=== PATIENT | female | born 1965 | race Caucasian/White ===

== ENCOUNTER 2017-06-10 15:03 | Inpatient (IN) ==
[2017-06-10 17:38] LABS: Basophils % 0.3 %; Eosinophils # 0.2 K/mcL (0.0-0.6); Eosinophils % 2.3 %; Hematocrit 41.7 % (35.3-44.9); Hemoglobin 13.9 g/dL (11.5-15.4); Immature Granulocytes % 0.4 % (0-4); Lymphocytes # 1.6 K/mcL (0.6-4.6); Lymphocytes % 18.1 %; Mean Corpuscular HGB Conc 33.3 g/dL (31.6-35.5); Mean Platelet Volume 10.9 fL (9.4-12.4); Monocytes # 0.8 K/mcL (0.0-1.3); Monocytes % 8.5 %; Neutrophils # 6.4 K/mcL (1.6-8.9); Platelet Count 233 K/mcL (140-400); Red Blood Count 4.21 M/mcL (3.82-4.97); Red Cell Distribution Width 15.3 % (11.5-14.5); Segmented Neutrophils % 70.4 %
[2017-06-10 17:49] LABS: BUN/Creatinine Ratio 10 (6-26); Blood Urea Nitrogen 9 mg/dL (7-20); Calcium 9.9 mg/dL (8.6-10.8); Carbon Dioxide 28 mEq/L (19-29); Chloride 108 mEq/L (98-109); Glucose 93 mg/dL (70-99); Osmolality,Calculated 296 (280-300); Potassium 4.1 mEq/L (3.5-4.5); Sodium 144 mEq/L (136-145); eGFR For African Americans > 60 (> 60); eGFR For Non-African Americans > 60 (> 60)
[2017-06-10] MEDS ORDERED: Aspirin 81 MG TAB.CHEW PO STA (18:34)
--- NOTE | 2017-06-10 18:36 | Emergency Department Note ---
START Narrative - START START: Patient seen and examined the time of arrival. 51-year-old female describing onset of numbness and tingling in the left upper extremity on the left side of her mouth and face that started approximately 1 PM this afternoon. During that timeframe there has been no significant progression of the symptoms. In arrival here she has had complete resolution of the symptoms at this time. No history of stroke. Denies any chest pain shortness breath headache vision changes nausea vomiting or diarrhea. Denies any recent trauma or injury. She does have what she describes as neuropathy to the distal aspect of the left index finger. She has no other neuro symptoms on exam. Face is symmetric bilaterally oral mucosa is patent and moist. Trachea is midline lungs are clear heart is regular abdomen soft nontender nondistended. No signs of swelling or edema in the lower extremities. Patient will have screening evaluation completed including CT imaging of the head chest x-ray EKG urinalysis CBC chemistry and electrolyte panel. Patient will have disposition determined by the nighttime physician Dr. dash pond. We will review the presentation symptoms of medical history at this time and course of care will be completed by him. Aspirin a be given here in the emergency room.
[2017-06-10 19:19] LABS: Magnesium 2.1 mg/dL (1.6-2.6)
[2017-06-10 19:20] LABS: Bilirubin,Urine Negative (Negative); Blood,Urine Negative (Negative); Clarity,Urine Clear (Clear); Color,Urine Yellow (Yellow); Glucose,Urine (UA) Normal (Normal); Ketones,Urine Negative (Negative); Leukocyte Esterase,Urine Negative (Negative); Nitrite,Urine Negative (Negative); Protein,Urine Negative (Neg-Trace); Specific Gravity,Urine 1.016 (1.010-1.025); Urobilinogen,Urine Normal (Normal)
[2017-06-10] MEDS ORDERED: Dexamethasone 4 MG/ML VIAL IVP ONE (19:30)
--- NOTE | 2017-06-10 19:41 | Emergency Department Note ---
Disposition Clinical Impression: Brain mass TIA (transient ischemic attack) Qualifiers: Transient cerebral ischemia type: unspecified Qualified Code(s): G45.9 - Transient cerebral ischemic attack, unspecified Disposition: Admitted As Inpatient Condition: Good Referrals: Kelby Shabazz MD [Primary Care Provider] - Time of Disposition: 19:59 Neuro HPI - General Chief Complaint: ED Neuro Symptoms/Deficit Stated Complaint: L Facial / Arm Numbness Time Seen by Provider: 06/10/17 18:24 Source: patient Mode of arrival: ambulatory Limitations: no limitations Nursing Notes Reviewed: Yes Vital Signs Reviewed: Yes - History of Present Illness HPI Narrative: Patient resents emergency room with complaint of left-sided facial numbness left arm tingling. Patient denies any trauma or injury. She is currently finished with a six-month regiment of chemotherapy. She is known breast cancer that has been treated. Patient denies chest pain shortness of breath headache vision changes nausea vomiting or diarrhea. Denies headache or vision changes time. Patient's symptoms are completely resolved on arrival here to the emergency room. Patient was concerned and wanted evaluated today. Onset of Symptoms Date: 06/10/17 Symptom Onset Unknown: No Location: left face, left arm History of same: No Severity: mild Quality: numbness, tingling Symptoms Improving: Yes Improves with: time Worsens with: none Context: sudden onset On Anticoagulants: No Treatments Prior to Arrival: none - Related Data Home Medications: Home Medications Medication Instructions Recorded Confirmed Cetirizine HCl [Zyrtec] 1 tab PO DAILY 10/13/15 05/31/17 Glucosamine Sulfate Dipot Chlr 1 tab PO BID 10/13/15 05/31/17 [Glucosamine] Multivitamin [Multivitamins] 1 cap PO DAILY 10/13/15 05/31/17 Calcium Carbonate [Calcium] 600 mg PO DAILY 01/17/16 05/31/17 Sulfacetamide Sodium 10% OPTH 1 drop BOTH EYES QID PRN 01/10/17 05/31/17 [Bleph 10] Previous Rx's Medication Instructions Recorded LORazepam [Ativan] 0.5 mg PO Q6H PRN #30 tablet 11/05/16 Loperamide [Imodium] 2 mg PO AD PRN #90 capsule 11/05/16 Magic Mouthwash 10 ml PO TID PRN #260 ml 03/06/17 Omeprazole [PriLOSEC] 20 mg PO DAILY #90 capsule. 11/05/16 Ondansetron [Zofran] 8 mg PO Q8HR PRN #30 tablet 11/05/16 Prochlorperazine Maleate 10 mg PO Q6HR PRN #40 tablet 11/05/16 [Compazine] Diphenoxylate/Atropine [Lomotil 2 each PO AD PRN #90 tablet 12/03/16 2.5 mg/0.025 mg] Tobramycin/Dex Opth DROPS 1 drop RIGHT EYE QID PRN #1 bottle 01/10/17 [Tobradex Opth Drops] Hydrocortisone 1% CREAM [Cortaid] 28 appl TP PRN PRN #1 bottle 04/01/17 Gabapentin [Neurontin] 300 mg PO HS #30 capsule 05/20/17 Letrozole [Femara] 2.5 mg PO DAILY #90 tablet 05/31/17 Allergies/Adverse Reactions: Allergies Allergy/AdvReac Type Severity Reaction Status Date / Time Penicillins Allergy Anaphylaxis Verified 05/31/17 11:45 adhesive tape AdvReac Itching Verified 05/31/17 11:45 All systems ED: reviewed and negative except as stated. Review of Systems: As Per HPI Constitutional: Denies: fever, chills, weakness Eyes: Denies: eye pain, eye discharge Cardiovascular: Denies: chest pain, palpitations, dyspnea on exertion Gastrointestinal: Denies: abdominal pain, nausea, vomiting, diarrhea Genitourinary: Denies: urgency, dysuria Musculoskeletal: Denies: back pain, neck pain Neurological: Denies: headache Past Medical History - Past Medical History Attestation: Yes The following information was validated with the patient. Source: patient Medical history: Reports: cancer Surgical history: Reports: breast surgery, hysterectomy, other Psychiatric history: Reports: no psych history - Social History Smoking Status: Former smoker Smokeless Tobacco Status: No Alcohol use: Reports: occasionally Drug use: Reports: none Physical Exam - General Limitations: no limitations General appearance: alert, in no apparent distress - Head Head exam: atraumatic, normocephalic, normal inspection - ENT ENT exam: normal exam, normal oropharynx, mucous membranes moist - Neck Neck exam: Present: normal inspection, full ROM, trachea midline - Chest Chest inspection: Present: normal inspection, symmetric chest wall rise. Absent : tenderness - Respiratory Respiratory exam: Present: normal lung sounds bilaterally. Absent: respiratory distress - Cardiovascular Cardiovascular exam: Present: regular rate, normal rhythm, normal heart sounds - Extremities Exam Extremities exam: Present: normal inspection, full ROM, normal capillary refill. Absent: tenderness - Back Exam Back exam: Present: normal inspection, full ROM. Absent: tenderness - Neurological Exam Neurological exam: Present: alert, oriented X3, CN II-XII intact, normal gait - Skin Skin exam: Present: warm, dry, intact, normal color Course Course Narrative: Patient was initially seen by myself in the start. Patient had results called and while still here in the emergency room and there is concerning findings on CT scan of her head. Initial presentation was completely benign. Patient waited in the emergency room lobby for approximately 3 hours prior to being brought back to the bed. Even prior to coming into our emergency room showed complete resolution of her symptoms. Patient described left-sided facial numbness and tingling as well as left upper extremity numbness and tingling. My neurologic evaluation is completely benign at this time patient has no focal issues noted on evaluation. CT imaging of the head as well as laboratory workup were ordered at this time for TIA evaluation and concern for possible mass effect secondary to the patient's history of breast cancer. CT imaging was resulted to myself by the on-call radiologist and there is a large 3 cm mass in the right parietal frontal hemisphere of the brain with swelling and edema. Mild mass effect is noted less than 3 mm. Consultation placed to the on -call radiologist and oncologist. Dr. Fuller and I reviewed the CT imaging results in presentation. He recommended steroids to be started at this time. Offered possible discharge home with MRI outpatient evaluation and consultations. After discussion with the patient and family at the bedside as well as the presentation symptoms and the concern based on the imaging study the decision was made to admit the patient for steroid presentation evaluation as well as MRI imaging and inpatient consultations. Consultation will be placed to oncology at this point and admission process completed. The on-call hospitalist Dr. Maki and I reviewed the imaging and the treatment recommendations. pt will be admitted at this time. Vital Signs Temperature 98.2 F 06/10/17 15:06 Pulse Rate 103 06/10/17 15:06 Respiratory Rate 16 06/10/17 15:06 Blood Pressure 173/89 06/10/17 15:06 O2 Sat by Pulse Oximetry 94 06/10/17 15:06 Temperature 98.2 F 06/10/17 15:06 Pulse Rate 82 06/10/17 18:36 Respiratory Rate 14 06/10/17 18:36 Blood Pressure 162/76 06/10/17 18:36 O2 Sat by Pulse Oximetry 99 06/10/17 18:36 Oxygen Delivery Oxygen Delivery Room Air Neuro Symptoms/Deficit - MDM Narrative Medical decision making narrative: brain mass, edema. tia symptoms - Medical Records Medical records reviewed: Yes I reviewed the patient's medical records. - Lab Data Lab results reviewed: Yes I reviewed the patient's lab results. Result diagrams: 06/10/17 17:22 06/10/17 17:22 Lab Results 06/10/17 06/10/17 06/10/17 Range/Units 17:22 17:22 17:22 WBC 9.1 (4.3-11.1) K/mcL RBC 4.21 (3.82-4.97) M/mcL Hgb 13.9 (11.5-15.4) g/dL Hct 41.7 (35.3-44.9) % MCV 99.0 (83.0-100.0) fL MCH 33.0 (28.0-33.3) pg MCHC 33.3 (31.6-35.5) g/dL RDW 15.3 H (11.5-14.5) % Plt Count 233 (140-400) K/mcL MPV 10.9 (9.4-12.4) fL Immature Gran % 0.4 (0-4) % Seg Neutrophils % 70.4 % Lymphocytes % 18.1 % Monocytes % 8.5 % Eosinophils % 2.3 % Basophils % 0.3 % Neutrophils # 6.4 (1.6-8.9) K/mcL Lymphocytes # 1.6 (0.6-4.6) K/mcL Monocytes # 0.8 (0.0-1.3) K/mcL Eosinophils # 0.2 (0.0-0.6) K/mcL Basophils # 0.0 (0.0-0.2) K/mcL Sodium 144 (136-145) mEq/L Potassium 4.1 (3.5-4.5) mEq/L Chloride 108 (98-109) mEq/L Carbon Dioxide 28 (19-29) mEq/L BUN 9 (7-20) mg/dL Creatinine 0.87 (0.57-1.11) mg/dL Est GFR ( Amer) > 60 (> 60) Est GFR (Non-Af Amer) > 60 (> 60) BUN/Creatinine Ratio 10 (6-26) Glucose 93 (70-99) mg/dL Calculated Osmolality 296 (280-300) Calcium 9.9 (8.6-10.8) mg/dL Phosphorus 3.0 (2.3-4.7) mg/dL Magnesium 2.1 (1.6-2.6) mg/dL Troponin I 0.00 (0-0.03) ng/mL Urine Color (Yellow) Urine Clarity (Clear) Urine pH (5.0-8.0) pH Units Ur Specific [place] (1.010-1.025) Urine Protein (Neg-Trace) mg/dL Urine Glucose (UA) (Normal) mg/dL Urine Ketones (Negative) mg/dL Urine Blood (Negative) Urine Nitrite (Negative) Urine Bilirubin (Negative) Urine Urobilinogen (Normal) mg/dL Ur Leukocyte Esterase (Negative) Ur Culture Indicated? (NO) Urine Test (Negative) 06/10/17 06/10/17 Range/Units 19:03 19:03 WBC (4.3-11.1) K/mcL RBC (3.82-4.97) M/mcL Hgb (11.5-15.4) g/dL Hct (35.3-44.9) % MCV (83.0-100.0) fL MCH (28.0-33.3) pg MCHC (31.6-35.5) g/dL RDW (11.5-14.5) % Plt Count (140-400) K/mcL MPV (9.4-12.4) fL Immature Gran % (0-4) % Seg Neutrophils % % Lymphocytes % % Monocytes % % Eosinophils % % Basophils % % Neutrophils # (1.6-8.9) K/mcL Lymphocytes # (0.6-4.6) K/mcL Monocytes # (0.0-1.3) K/mcL Eosinophils # (0.0-0.6) K/mcL Basophils # (0.0-0.2) K/mcL Sodium (136-145) mEq/L Potassium (3.5-4.5) mEq/L Chloride (98-109) mEq/L Carbon Dioxide (19-29) mEq/L BUN (7-20) mg/dL Creatinine (0.57-1.11) mg/dL Est GFR ( Amer) (> 60) Est GFR (Non-Af Amer) (> 60) BUN/Creatinine Ratio (6-26) Glucose (70-99) mg/dL Calculated Osmolality (280-300) Calcium (8.6-10.8) mg/dL Phosphorus (2.3-4.7) mg/dL Magnesium (1.6-2.6) mg/dL Troponin I (0-0.03) ng/mL Urine Color Yellow (Yellow) Urine Clarity Clear (Clear) Urine pH 7.0 (5.0-8.0) pH Units Ur Specific [place] 1.016 (1.010-1.025) Urine Protein Negative (Neg-Trace) mg/dL Urine Glucose (UA) Normal (Normal) mg/dL Urine Ketones Negative (Negative) mg/dL Urine Blood Negative (Negative) Urine Nitrite Negative (Negative) Urine Bilirubin Negative (Negative) Urine Urobilinogen Normal (Normal) mg/dL Ur Leukocyte Esterase Negative (Negative) Ur Culture Indicated? NO (NO) Urine Test Negative (Negative) - Radiology Data Radiology results reviewed: Yes I reviewed the patient's radiology results. ct confirms right-sided brain mass with edema. No significant midline shift noted. - EKG Data EKG attestation: Yes I reviewed and interpreted this EKG. EKG results narrative: EKG shows normal sinus rhythm ventricular rate of 80 bpm. SC interval 137. QRS duration of 89. QTC of 394. No acute signs of ST segment elevation or myocardial infarction EKG shows normal: sinus rhythm, axis, intervals, QRS complexes, ST-T waves Rate: normal Rhythm: NSR [place]/QRS: normal NIH Stroke Scale - Level of Consciousness LOC: Alert - LOC Questions LOC Questions: Answers both correctly - LOC Commands LOC Commands: Performs both correctly - Best Gaze Best Gaze: Normal - Visual Visual: No visual loss - Facial Palsy Facial Palsy: Normal - Motor Arms Motor Arm-Left: No drift for 10 seconds Motor Arm-Right: No drift for 10 seconds - Motor Legs Motor Leg-Left: No drift for 5 seconds Motor Leg-Right: No drift for 5 seconds - Limb Ataxia Limb Ataxia: Normal, No Ataxia - Sensory Sensory: Normal - Best Language Best Language: Mute, no usable speech - Dysarthria Dysarthria: Normal - Extinction and Inattention Extinction and Inattention: Normal - NIHSS Total Score NIHSS Total Score: 3 TPA Checklist - LKW: 3-4.5 hrs Add. Warnings/Precautions Patient/family understanding: The patient/family members have been counseled and understood the risk, benefit , and alternatives of treatment. Critical Care Time Critical Care Time: Yes Total Critical Care Time: 30 Attestation: Critical care performed: Time is exclusive of separately billable procedures. Time includes: direct patient care, patient reassessment, coordination of patient care, interpretation of data (laboratory data, radiology data, and respiratory data), review of patient's medical records, medical consultation and documentation of patient care. Procedures included in critical care time: Procedures excluded from critical care time:
[2017-06-10] MEDS ORDERED: *HR* LORazepam 2 MG/ML VIAL IVP ONE (19:52)
[2017-06-11] MEDS ORDERED: *HR* OxyCODONE Immed Rel 5 MG TABLET PO PRN (02:08)
[2017-06-11] MEDS ORDERED: Ondansetron 4 MG/2 ML VIAL IVP PRN (02:08)
[2017-06-11] MEDS ORDERED: Acetaminophen 325 MG TABLET PO PRN (02:08)
[2017-06-11] MEDS ORDERED: *HR* Morphine 2 MG/ML SYRINGE IVP PRN (02:08)
[2017-06-11] MEDS ORDERED: Naloxone 0.4 MG/ML INJ IVP PRN (02:08)
[2017-06-11] MEDS ORDERED: *HR* LORazepam 0.5 MG TABLET PO PRN (02:18)
[2017-06-11] MEDS ORDERED: Magic Mouthwash 10 ML UD Cup PO PRN (02:18)
[2017-06-11] MEDS ORDERED: Sulfacetamide Sodium 10% OPTH 15 ML BOTTLE BOTH EYES PRN (02:18)
[2017-06-11] MEDS ORDERED: Tobramycin/Dex Opth DROPS 2.5 ML BOTTLE RIGHT EYE PRN (02:18)
--- NOTE | 2017-06-11 02:29 | Internal Med History&Physical ---
Date of Encounter: 06/11/17 Time of Encounter: 01:50 Assessment and Plan (1) Brain mass Current visit: Yes Status: Acute 1. CT head report reviewed and images viewed. 2. Will place on IV Decadron 4 mg Q6H scheduled. 3. Will order brain MRI to be done STAT first thing in the morning. 4. Consult Oncology and Neurology for guidance. 5. Neurochecks to be performed Q4 hours. 6. Patient will likely need radiation therapy soon vs gamma knife surgery. Discussed with patient and will await oncology recommendations. 7. Possible transfer to [facility] for neurosurgical consultation pending MRI and Oncology/Neurology consultation. (2) Breast cancer Current visit: Yes Status: Chronic 1. Continue home meds as appropriate. 2. Consult oncology for guidance, treatment options, and possible transfer (if necessary) regarding brain metastases treatment. Qualifiers: Breast location: unspecified site of breast Estrogen receptor status: unspecified Patient sex: female Laterality: left Qualified Code(s): C50.912 - Malignant neoplasm of unspecified site of left female breast (3) DVT prophylaxis Current visit: Yes Status: Acute 1. EPCD's. Internal Medicine - H&P: HPI Chief complaint: left hand numbness Admitted From: Emergency Dept Plans for Post Hospital Care: Home History of present illness: Ms. Miner is a 51 year old female who presents to the ER tonight with complaints of left-sided numbness of her hand and arm. Symptoms started early yesterday but they resolved by the evening. She has had a headache for most of week but the headache resolved yesterday. She has had no other associated numbness, weakness, or paralysis. She went to the ER for evaluation where she underwent CT of the head. The found a 3 cm frontoparietal mass on the right side with some vasogenic edema. This is likely secondary to metastatic lesion from her breast cancer. Oncology was consulted by the ER and recommended placing patient on steroids. The patient was then admitted to hospitalist service. Upon my assessment of the patient, she is resting comfortably with no complaints presently. She states all of her symptoms have resolved, and she has no further numbness, paresthesias, weakness, or any further headache. She denies any paralysis. She denies any speech difficulty or choking with food ingestion. I reviewed the CT scan of her head and discussed with patient the findings noted above. I informed her that this is likely a metastatic lesion from her breast cancer but that we need to confirm with MRI of the brain in the morning. I explained that I would place her on IV steroids tonight and that we are going to consult neurology and oncology for further guidance. Patient voiced understanding and agreement with the plan of care. She obviously was emotionally distraught and teary-eyed as I talked to her. Past Med Surg Social Fam HX - Past Medical History Attestation: Yes The following information was validated with the patient. Source: patient, old records reviewed Medical history: cancer (breast) Psychiatric history: no psych history - Past Surgical History Surgical History: breast surgery, hysterectomy, other - Social History Smoking Status: Former smoker Smokeless Tobacco Status: No Alcohol use: occasionally Drug use: none Current living situation: Home, With Family Activity Level: Independent ambulation Recent Out of Country Travel Within the Last 8 Weeks: No - Family History Mother Name: kwame blue Living Status: Age at : 43 Cause of : cervical cancer Hx Family Cancer: Yes Internal Medicine - H&P: Meds Cetirizine HCl [Zyrtec] 10 mg PO DAILY 10/13/15 [History] Glucosamine Sulfate Dipot Chlr [Glucosamine] 1,000 mg PO BID 10/13/15 [History] Multivitamin [Multivitamins] 1 cap PO DAILY 10/13/15 [History] Calcium Carbonate [Calcium] 600 mg PO DAILY 01/17/16 [History] LORazepam [Ativan] 0.5 mg PO Q6H PRN #30 tablet 11/05/16 [Rx] Loperamide [Imodium] 2 mg PO AD PRN #90 capsule 11/05/16 [Rx] Magic Mouthwash 10 ml PO TID PRN #260 ml 11/05/16 [Rx] Omeprazole [PriLOSEC] 20 mg PO DAILY #90 capsule. 11/05/16 [Rx] Ondansetron [Zofran] 8 mg PO Q8HR PRN #30 tablet 11/05/16 [Rx] Prochlorperazine Maleate [Compazine] 10 mg PO Q6HR PRN #40 tablet 11/05/16 [Rx] Diphenoxylate/Atropine [Lomotil 2.5 mg/0.025 mg] 2 each PO AD PRN #90 tablet 11/16 [Rx] Sulfacetamide Sodium 10% OPTH [Bleph 10] 1 drop BOTH EYES QID PRN 01/10/17 [ History] Tobramycin/Dex Opth DROPS [Tobradex Opth Drops] 1 drop RIGHT EYE QID PRN #1 bottle 01/10/17 [Rx] Gabapentin [Neurontin] 300 mg PO HS #30 capsule 05/20/17 [Rx] Letrozole [Femara] 2.5 mg PO DAILY #90 tablet 05/31/17 [Rx] 3 Allergy/AdvReac Type Severity Reaction Status Date / Time Penicillins Allergy Anaphylaxis Verified 05/31/17 11:45 adhesive tape AdvReac Itching Verified 05/31/17 11:45 - Constitutional Constitutional: no chills, no fever(s) - EENT Eyes: no blurry vision, no change in vision Ears: no ear pain Nose, mouth and throat: no nasal congestion, no sinus pain, no sinus pressure - Cardiovascular Cardiovascular ROS IM: no chest pain, no dyspnea, no lightheadedness, no palpitations - Respiratory Respiratory: no cough, no dyspnea, no hemoptysis - Gastrointestinal Gastrointestinal: no abdominal pain, no diarrhea, no hematemesis, no hematochezia, no nausea, no vomiting - Genitourinary Genitourinary: no dysuria, no flank pain, no hematuria - Musculoskeletal Musculoskeletal ROS IM: no arthralgias, no back pain - Integumentary Integumentary IM: no rash, no jaundice - Neurological Neurological ROS: focal weakness (left upper extremity), headache(s), paresthesias (left upper extremity), no frequent falls - Psychiatric Psychiatric: no anxiety, no depression - Endocrine Endocrine IM: no polydipsia, no polyuria - Hematologic/Lymphatic Hematologic/Lymphatic: no easy bruising - Allergic/Immunologic Allergic/Immunologic: no wheezing, no GI upset with certain foods - Constitutional Vitals: Temp Pulse Resp BP Pulse Ox 97.8 F 82 16 135/70 94 06/11/17 00:05 06/11/17 00:05 06/11/17 00:05 06/11/17 00:05 06/11/17 00:05 General appearance: Present: cooperative, A&O X 3, pleasant, no acute distress - Head Head exam: Present: atraumatic, normal inspection - Expanded Head Exam Head exam expanded: Absent: abrasion, contusion, general tenderness - Eye Eye exam: Present: EOMI, normal appearance, PERRL. Absent: scleral icterus Pupils: Present: normal accommodation - ENT ENT exam: Present: mucous membranes moist, normal exam - Neck Neck exam general surgery: Present: full ROM, supple. Absent: tenderness, thyromegaly - Expanded Neck Exam Neck exam: Absent: carotid bruit - Respiratory Respiratory exam: Present: CTAB. Absent: rales, rhonchi, wheezes - Cardiovascular Cardiovascular exam: Present: RRR, +S1, +S2. Absent: diastolic murmur, systolic murmur - GI/Abdominal GI/Abdominal exam: Present: normal bowel sounds, soft. Absent: hepatomegaly, mass, splenomegaly, tenderness - Extremities Exam Extremities exam: Present: full ROM, warm, radial pulses palpable and symmetrical. Absent: calf tenderness, joint swelling, pedal edema - Back Exam Back exam: Absent: CVA tenderness (L), CVA tenderness (R) - Neurological Exam Neurological exam: Present: alert, CN II-XII intact, oriented X3, reflexes normal, no focal deficits, strengths equal and symetr throughout. Absent: motor sensory deficit, facial droop, speech deficit - Psychiatric Psychiatric exam: Present: normal affect, normal mood - Skin Skin exam: Present: dry, warm. Absent: rash Internal Med - H&P Results - Labs CBC & Chem 7: 06/10/17 17:22 06/10/17 17:22 - EKG Data -: EKG Interpreted by Myself - EKG Data Prior EKG available for review: no EKG comments: 06/11/17 02:48 NSR; no acute changes - Diagnostic Studies CT scan - head Status: image reviewed by me (3 cm masss leion noted; report reviewed)
[2017-06-11 03:48] LABS: Basophils % 0.1 %; Eosinophils % 0.1 %; Hematocrit 40.3 % (35.3-44.9); Hemoglobin 13.4 g/dL (11.5-15.4); Immature Granulocytes % 0.4 % (0-4); Lymphocytes # 0.7 K/mcL (0.6-4.6); Lymphocytes % 8.5 %; Mean Corpuscular HGB Conc 33.3 g/dL (31.6-35.5); Mean Corpuscular Hemoglobin 32.7 pg (28.0-33.3); Mean Corpuscular Volume 98.3 fL (83.0-100.0); Mean Platelet Volume 10.9 fL (9.4-12.4); Monocytes # 0.2 K/mcL (0.0-1.3); Monocytes % 2.2 %; Platelet Count 240 K/mcL (140-400); Red Cell Distribution Width 15.1 % (11.5-14.5); Segmented Neutrophils % 88.7 %
[2017-06-11 03:51] LABS: INR 1.1; Prothrombin Time 11.3 Seconds (9.4-12.1)
[2017-06-11 03:54] LABS: Activated Partial Thrombo Time 27.2 Seconds (26.0-36.0)
[2017-06-11 04:01] LABS: Alanine Aminotransferase 23 Units/L (0-55); Albumin 3.7 g/dL (3.5-5.0); Alkaline Phosphatase 52 Units/L (38-126); Aspartate Amino Transferase 20 Units/L (5-34); BUN/Creatinine Ratio 14 (6-26); Bilirubin,Total 0.3 mg/dL (0.2-1.2); Blood Urea Nitrogen 11 mg/dL (7-20); Calcium 9.4 mg/dL (8.6-10.8); Carbon Dioxide 24 mEq/L (19-29); Chloride 110 mEq/L (98-109); Globulin 3.8 g/dL (2.4-3.5); Glucose 198 mg/dL (70-99); Magnesium 1.9 mg/dL (1.6-2.6); Osmolality,Calculated 295 (280-300); Sodium 140 mEq/L (136-145); Total Protein 7.5 g/dL (6.0-8.3); eGFR For African Americans > 60 (> 60); eGFR For Non-African Americans > 60 (> 60)
[2017-06-11] MEDS: Dexamethasone 4 MG/ML VIAL IVP SCH ×2 (04:06→09:24)
[2017-06-11 07:56] VITALS: BP 127/83
--- NOTE | 2017-06-11 08:02 | Event Note ---
Date of Encounter: 06/11/17 Time of Encounter: 08:02
[2017-06-11] MEDS ORDERED: levETIRAcetam 1,000 MG in 0.9 % Sodium Chloride 100 ML IVPB ONE (08:20)
--- NOTE | 2017-06-11 08:22 | Discharge Summary ---
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 (4) Breast cancer Priority: Secondary Status: Chronic Qualifiers: Breast location: unspecified site of breast Estrogen receptor status: unspecified Patient sex: female Laterality: left Qualified Code(s): C50.912 - Malignant neoplasm of unspecified site of left female breast - Discharge Medications Home Medications: Cetirizine HCl [Zyrtec] 10 mg PO DAILY 10/13/15 [History] Glucosamine Sulfate Dipot Chlr [Glucosamine] 1,000 mg PO BID 10/13/15 [History] Multivitamin [Multivitamins] 1 cap PO DAILY 10/13/15 [History] Calcium Carbonate [Calcium] 600 mg PO DAILY 01/17/16 [History] LORazepam [Ativan] 0.5 mg PO Q6H PRN #30 tablet 11/05/16 [Rx] Loperamide [Imodium] 2 mg PO AD PRN #90 capsule 11/05/16 [Rx] Magic Mouthwash 10 ml PO TID PRN #260 ml 11/05/16 [Rx] Omeprazole [PriLOSEC] 20 mg PO DAILY #90 capsule. 11/05/16 [Rx] Ondansetron [Zofran] 8 mg PO Q8HR PRN #30 tablet 11/05/16 [Rx] Prochlorperazine Maleate [Compazine] 10 mg PO Q6HR PRN #40 tablet 11/05/16 [Rx] Diphenoxylate/Atropine [Lomotil 2.5 mg/0.025 mg] 2 each PO AD PRN #90 tablet 11/16 [Rx] Sulfacetamide Sodium 10% OPTH [Bleph 10] 1 drop BOTH EYES QID PRN 01/10/17 [ History] Tobramycin/Dex Opth DROPS [Tobradex Opth Drops] 1 drop RIGHT EYE QID PRN #1 bottle 01/10/17 [Rx] Gabapentin [Neurontin] 300 mg PO HS #30 capsule 05/20/17 [Rx] Letrozole [Femara] 2.5 mg PO DAILY #90 tablet 05/31/17 [Rx] Allergies/Adverse Reactions: 3 Allergy/AdvReac Type Severity Reaction Status Date / Time Penicillins Allergy Anaphylaxis Verified 05/31/17 11:45 adhesive tape AdvReac Itching Verified 05/31/17 11:45 Date of admission: 06/11/17 02:08 Primary care physician: Kelby Shabazz MD Discharging clinician: Boni Christensen - Patient Status Disposition: Transfer Other Condition: Serious Functional capacity at discharge: independent ambulation Overall status at discharge: patient is not back to baseline - Discharge Instructions Follow Up With: Kelby Shabazz MD [Primary Care Provider] - - Diet and Activity Activity: as per physical therapy Diet: other Interval History: Ms. Miner is a 51 year old female who presents to the ER tonight with complaints of left-sided numbness of her hand and arm. Symptoms started early yesterday but they resolved by the evening. She has had a headache for most of week but the headache resolved yesterday. She has had no other associated numbness, weakness, or paralysis. She went to the ER for evaluation where she underwent CT of the head. The found a 3 cm frontoparietal mass on the right side with some vasogenic edema. This is likely secondary to metastatic lesion from her breast cancer ( ER+ve, CO Neg, HER2 Neg). Oncology was consulted by the ER and recommended placing patient on steroids. The patient was then admitted to hospitalist service. Hospital course: Patient was hospitalized. CT scan of the brain was done. CT scan of the brain suggestive of a more than 4 cm mass on the right frontoparietal lesion. The mass was surrounded by vasogenic edema. Patient was started on Decadron. Patient's still having symptoms of numbness.Patient was given 1 g of Keppra intravenously. Spoke to oncology from this hospital ( Dr Garcia): Explained admitting symptoms , CT scan findings and treatment given so far. Recommendations: Transfer to [facility] for possible CyberKnife, and debulking of the tumor. Spoke to neurology: ( Dr Reed): Agreed with the plan above. Called [facility]. Spoke to Shannan who is a RN, transfer center nurse. Case discussed at length. She accepted the transfer. Accepting physician: Dr Segovia ( Neurooncologist) I have explained all above with the patient. Patient's was at bedside. They agreed for transfer and at the time of transfer they do not have any further questions. This transfer is for management of the patient at the higher center as we do not have cyberknife procedure available here in this hospital. - Time Spent with Patient Total time spent providing and/or coordinating discharge services: - Constitutional Vitals: Temp Pulse Resp BP Pulse Ox 97.3 F L 83 16 127/83 97 06/11/17 07:56 06/11/17 07:56 06/11/17 07:56 06/11/17 07:56 06/11/17 07:56 General appearance: Present: cooperative, A&O X 3, pleasant, no acute distress - Head Head exam: Present: atraumatic, normocephalic - Eye Eye exam: Present: PERRL, conjuntiva pink, sclera anicteric Pupils: Present: PERRL - Neck Neck exam general surgery: Present: supple, trachea midline. Absent: lymphadenopathy - Respiratory Respiratory exam: Present: CTAB. Absent: accessory muscle use, rales, rhonchi, wheezes - Cardiovascular Cardiovascular exam: Present: RRR, +S1, +S2. Absent: diastolic murmur, gallop, rubs, systolic murmur - GI/Abdominal GI/Abdominal exam: Present: normal bowel sounds, soft, no peritoneal signs. Absent: distended, tenderness - Extremities Exam Extremities exam: Present: warm, radial pulses palpable and symmetrical. Absent : calf tenderness, cyanotic, pedal edema - Neurological Exam Neurological exam: Present: CN II-XII intact, oriented X3, no focal deficits. Absent: pronater drift, facial droop, speech deficit - Skin Skin exam: Present: dry, intact
[2017-06-11] MEDS ORDERED: Loratadine 10 MG TABLET PO SCH (09:00)
[2017-06-11] MEDS ORDERED: Multivit/Ca/Min/Fe/FA 1 TAB TABLET PO SCH (09:00)
[2017-06-11] MEDS ORDERED: GLUCOSAMINE 1000 MG PO SCH (09:00)
[2017-06-11] MEDS ORDERED: Letrozole 2.5 MG TABLET PO SCH (09:00)
--- NOTE | 2017-06-11 10:22 | Neurology - Consult Note ---
Date of Encounter: 06/11/17 Time of Encounter: 07:50 Assessment and Plan (1) Intracranial mass Current Visit: Yes Status: Acute Patient who has an history of breast cancer status post surgery and chemotherapy now presented with numbness slight weakness and dysmetria in the left upper extremity with evidence of a large 3 cm mass in the right frontoparietal area along with significant edema and midline shift. Clinically patient is a stable but certainly there is significant edema and shift noted she has been started on IV steroids as per oncology recommendations I suggested that we should continue on it. At the same time also suggested to start her on prophylaxis antiepileptic with the Keppra as there is a high risk for seizures. I have discussed in detail with the patient as well as the primary team due to the patient radiological finding I would recommend that patient to be transferred to a tertiary care center for further management as she would probably benefit from gamma knife or perhaps may be a candidate for surgical intervention, this time it seems to be only a solitary lesion but certainly she would require more imaging studies preferably MRI of the brain with and without contrast to look for any other smaller metastatic lesions. At the moment patient is clinically stable she could be transferred safely to a tertiary care center for further management in the meantime we should continue her on IV steroids as well as prophylactic anticonvulsive therapy History of Present Illness HPI: Ms. Miner is a 51 year old female who was admitted with complaints of left- sided numbness of her hand and arm. Symptoms started early yesterday but they resolved by the evening. She has had a headache for most of week but the headache resolved yesterday. She has had no other associated numbness, weakness , or paralysis. She was seen in ER, CT of the head showed 3 cm frontoparietal mass on the right side with vasogenic edema. Oncology was consulted by the ER and recommended placing patient on steroids. Past Med Surg Social Fam HX - Past Medical History Medical history: cancer (breast) Psychiatric history: no psych history - Past Surgical History Surgical History: breast surgery, hysterectomy, other - Social History Smoking Status: Former smoker Smokeless Tobacco Status: No Alcohol use: occasionally Drug use: none - Family History Mother Name: kwame blue Living Status: Age at : 43 Cause of : cervical cancer Hx Family Cancer: Yes Medications and Allergies Cetirizine HCl [Zyrtec] 10 mg PO DAILY 10/13/15 [History] Glucosamine Sulfate Dipot Chlr [Glucosamine] 1,000 mg PO BID 10/13/15 [History] Multivitamin [Multivitamins] 1 cap PO DAILY 10/13/15 [History] Calcium Carbonate [Calcium] 600 mg PO DAILY 01/17/16 [History] LORazepam [Ativan] 0.5 mg PO Q6H PRN #30 tablet 11/05/16 [Rx] Loperamide [Imodium] 2 mg PO AD PRN #90 capsule 11/05/16 [Rx] Magic Mouthwash 10 ml PO TID PRN #260 ml 11/05/16 [Rx] Omeprazole [PriLOSEC] 20 mg PO DAILY #90 capsule.dr 11/05/16 [Rx] Ondansetron [Zofran] 8 mg PO Q8HR PRN #30 tablet 11/05/16 [Rx] Prochlorperazine Maleate [Compazine] 10 mg PO Q6HR PRN #40 tablet 11/05/16 [Rx] Diphenoxylate/Atropine [Lomotil 2.5 mg/0.025 mg] 2 each PO AD PRN #90 tablet 11/16 [Rx] Sulfacetamide Sodium 10% OPTH [Bleph 10] 1 drop BOTH EYES QID PRN 01/10/17 [ History] Tobramycin/Dex Opth DROPS [Tobradex Opth Drops] 1 drop RIGHT EYE QID PRN #1 bottle 01/10/17 [Rx] Gabapentin [Neurontin] 300 mg PO HS #30 capsule 05/20/17 [Rx] Letrozole [Femara] 2.5 mg PO DAILY #90 tablet 05/31/17 [Rx] 3 Allergy/AdvReac Type Severity Reaction Status Date / Time Penicillins Allergy Anaphylaxis Verified 05/31/17 11:45 adhesive tape AdvReac Itching Verified 05/31/17 11:45 All Systems: A 10-system review of systems was performed and is negative for pertinent findings except as documented above in the HPI. Physical Examination - Vital Signs Vital Signs: Initial Vital Signs Temp Pulse Resp BP Pulse Ox 98.2 F 103 16 173/89 94 06/10/17 15:06 06/10/17 15:06 06/10/17 15:06 06/10/17 15:06 06/10/17 15:06 - Constitutional General appearance: comfortable - Neurologic Sensorimotor examination: intact Detailed motor examination: full strength in all major muscle groups Motor examination - right side: 5/5: deltoids, biceps, triceps, wrist flexion, wrist extension, store cashier, hip flexors, tibialis Anterior, quadriceps, toe extension (EHL), plantarflexion Motor examination - left side: 4/5: deltoids, biceps, triceps, wrist flexion, wrist extension, 5/5: hip flexors, store cashier, quadriceps, tibialis Anterior, toe extension (EHL), plantarflexion Detailed sensory examination: intact Reflex and gait examination: other (reflexes: 2 on left side and 1 on right side . Mild dysmetria on left as compare to right) Mental Status Examination: awake, alert, oriented to person, oriented to place, oriented to time, follows commands appropriately, answers questions appropriately, no agnosia, no aphasia Cranial nerve examination: PERRL, EOMI, visual rodríguez intact, corneal reflexes brisk symmetrically, sensory to face intact, mastication intact, no facial asymmetry is present, no dysarthria, hearing is intact symmetrically, soft palate elevates bilaterally upon phonation, gag reflex intact, flexes SCM and trapezius muscles symmetrically with full power, tongue protrudes midline, no atrophy or facial fasiculations present Cerebellar examination: performs finger to nose and heel to [place] symmetrically without ataxia, no gait ataxia, no truncal ataxia Results - Laboratory Findings CBC and BMP: 06/11/17 03:39 06/11/17 03:39 Abnormal lab findings: Abnormal lab results RDW 15.1 % (11.5-14.5) H 06/11/17 03:39 Chloride 110 mEq/L (98-109) H 06/11/17 03:39 Glucose 198 mg/dL (70-99) H 06/11/17 03:39 Globulin 3.8 g/dL (2.4-3.5) H 06/11/17 03:39 Albumin/Globulin Ratio 1.0 (1.1-2.2) L 06/11/17 03:39 Consult Discharge Plan - Plan Referrals: Mele,Kelby Noe MD [Primary Care Provider] -
--- NOTE | 2017-06-11 16:44 | Electrocardiograph Report ---
[place] [id number] Test Date: 2017-06-10 Pat Name: Chelo Miner Department: 103 Room: 2N8 Gender: F Seconds Handler: EKP : [id number] Requested By: Johnson Simon Order Number: [id number] Reading MD: Rupa Moore Measurements Intervals [place] Rate: 80 P: 41 KS: 137 QRS: 73 QRSD: 89 T: 80 QT: 357 QTc: 394 Interpretive Statements SINUS RHYTHM Electronically Signed On 06-11-2017 16:42:48 EDT by Rupa Moore
[2017-06-11] MEDS ORDERED: Gabapentin 300 MG CAPSULE PO SCH (21:00)
== END 2017-06-11 11:00 | disposition other institution (70) | DRG 70 ==
LOC: EMEROO 15:03 → 2NENU 15:03 → SUATTDRO 06-11 02:08
PROVIDERS: ADMIT Family Medicine; ATTEND Internal Medicine